=== PATIENT | female | born 1955 | race Caucasian/White ===

== ENCOUNTER → 2016-11-20 | Outpatient (CLI) | payer BC ==
[~2016-11-20] MED LIST: ASPEC81 PO; CLTP PO; HYDC25 PO; LISI10TA PO; MULT-506 PO; SIMV20TA2 PO; STLS
--- NOTE | 2016-11-20 15:36 | MAMMOGRAPHY REPORT ---
BILATERAL DIGITAL SCREENING MAMMOGRAM TOMOSYNTHESIS WITH CAD: 11/20/2016 TECHNIQUE: Breast tomosynthesis in addition to standard 2D mammography was performed. Current study was also evaluated with a Computer Aided Detection (CAD) system. COMPARISON: Comparison is made to exams dated: 11/18/2015 mammogram, 11/14/2013 mammogram, 11/08/2012 mammogram, 11/16/2014 mammogram, 11/06/2011 mammogram, and 11/05/2010 mammogram - [facility]. BREAST COMPOSITION: The tissue of both breasts is heterogeneously dense, which may obscure small ma sses. FINDINGS: No suspicious masses, calcifications, or areas of architectural distortion are noted in e ither breast. There has been no significant interval change compared to prior exams. Fluctuating sc attered round/oval circumscribed benign-appearing masses are again noted in the right breast, which likely represent cysts. Scattered bilateral benign-appearing calcifications are stable. IMPRESSION: ACR BI-RADS CATEGORY 2: BENIGN There is no mammographic evidence of malignancy. A 1 year screening mammogram is recommended. The p atient will receive written notification of the results. Approximately 10% of breast cancers are not detected with mammography. A negative mammographic repor t should not delay biopsy if a clinically suggestive mass is present. Marika Leyva M.D. /:11/20/2016 12:30:13 Collar Turner: Neetu CRENSHAW(R)(M), [facility] letter sent: Normal 1/2 BI-RADS Code: ACR BI-RADS Category 2: Benign
== END | disposition home or self-care (01) ==
LOC: C.MAMM 08:36
PROVIDERS: ATTEND Family Medicine
DX: Z12.31 Encounter for screening mammogram for malignant neoplasm of breast (principal)

== ENCOUNTER → 2017-11-22 | Outpatient (CLI) | payer BC ==
--- NOTE | 2017-11-22 15:52 | MAMMOGRAPHY REPORT ---
BILATERAL DIGITAL SCREENING MAMMOGRAM TOMOSYNTHESIS WITH CAD: 11/22/2017 CLINICAL HISTORY: Routine screening. Patient has no complaints. TECHNIQUE: Breast tomosynthesis in addition to standard 2D mammography was performed. Current study was also evaluated with a Computer Aided Detection (CAD) system. COMPARISON: Comparison is made to exams dated: 11/20/2016 mammogram, 11/18/2015 mammogram, 11/16/2014 m ammogram, 11/14/2013 mammogram, 11/08/2012 mammogram, and 11/06/2011 mammogram - [facility]. BREAST COMPOSITION: The tissue of both breasts is heterogeneously dense, which may obscure small mas ses. FINDINGS: No suspicious masses, calcifications, or areas of architectural distortion are noted in ei ther breast. There has been no significant interval change compared to prior exams. Fluctuating scat tered round/oval circumscribed benign-appearing masses are again noted in the right breast, which lik felecia represent cysts. Scattered bilateral benign-appearing calcifications are stable. A linear scar marker denotes a scar on the left breast. IMPRESSION: ACR BI-RADS CATEGORY 2: BENIGN There is no mammographic evidence of malignancy. A 1 year screening mammogram is recommended. The pa tient will receive written notification of the results. Approximately 10% of breast cancers are not detected with mammography. A negative mammographic report should not delay biopsy if a clinically suggestive mass is present. Marika Leyva M.D. /:11/22/2017 14:48:25 [facility] Teacher: Nina Ordaz, [facility] letter sent: Normal 1/2 BI-RADS Code: ACR BI-RADS Category 2: Benign
== END | disposition home or self-care (01) ==
LOC: C.MAMM 09:25
PROVIDERS: ATTEND Family Medicine
DX: Z12.31 Encounter for screening mammogram for malignant neoplasm of breast (principal)

== ENCOUNTER 2025-04-16 08:53 | Observation (INO) ==
--- NOTE | 2025-03-14 12:28 | PAT Medication Instructions ---
Medication Instructions Date of Service March 14, 2025 Home Medications atorvastatin 20 mg tablet (Lipitor) 20 mg PO QAM tamoxifen 20 mg tablet 20 mg PO QAM acetaminophen 500 mg capsule 500 mg PO QAM PRN Pain calcium 600 mg capsule 600 mg PO DAILY docusate sodium 100 mg capsule (Stool Softener) 100 mg PO DAILY hydrochlorothiazide 25 mg tablet 25 mg PO QAM ibuprofen 200 mg tablet 200 - 400 mg PO QAM PRN Pain lisinopril 10 mg tablet 10 mg PO QAM multivitamin 1 tab PO DAILY vitamin B complex 1 cap PO DAILY ASK your surgeon for instructions ibuprofen 200 mg tablet 200 - 400 mg PO QAM PRN Pain ASK your prescriber and surgeon tamoxifen 20 mg tablet 20 mg PO QAM DO NOT take the morning of surgery calcium 600 mg capsule 600 mg PO DAILY docusate sodium 100 mg capsule (Stool Softener) 100 mg PO DAILY hydrochlorothiazide 25 mg tablet 25 mg PO QAM lisinopril 10 mg tablet 10 mg PO QAM multivitamin 1 tab PO DAILY vitamin B complex 1 cap PO DAILY Take morning of surgery With a small sip of water, OTHERWISE NOTHING TO EAT OR DRINK AFTER MIDNIGHT: atorvastatin 20 mg tablet (Lipitor) 20 mg PO QAM acetaminophen 500 mg capsule 500 mg PO QAM PRN Pain (if needed) Other Notes If you have any questions please call us at [phone] or [phone] or [phone] or [phone]
--- NOTE | 2025-03-22 10:27 | Anesthesiology Consultation ---
Date of Service March 22, 2025 Assessment & Plan (1) Encounter for pre-operative examination: - left arm restriction. - Case discussed in detail with Dr. Berry including pre-op CXR and he advised patient is acceptable to proceed, nothing additional needed. Will fax GLEN chacon to [facility] PCP for continuity of care. - Outpatient joint assessment: Patient is currently scheduled for inpatient pathway. If re-evaluated and patient/surgeon requests outpatient pathway, patient is acceptable candidate for outpatient joint program from anesthesia standpoint pending surgeon's office assessment of pt motivation/support/completion of same day joint program preop requirements. Chart Review Chart Review: Acceptable Risk for Surgery and Patient seen in Pre Admission Testing Teaching & Discussion Pre-Anesthesia Teaching/Discussion Notes: Instructed NPO after midnight before surgery, except medications with 15 cc of water. Medication instructions provided according to the PAT guidelines. History Surgery Operation Date: 04/16/25 08:15 Proposed Procedures p Right Anterior Total Hip Arthroplasty - René Dickson, Height/Weight Height: 5 ft 6 in Weight: 93.4 kg Allergies Allergy/AdvReac Type Severity Reaction Status Date / Time No Known Allergies Allergy Verified 03/13/25 14:29 Medications Home Medications Medication Instructions Recorded Confirmed Last Taken atorvastatin 20 mg tablet (Lipitor) 20 mg PO QAM 02/18/22 03/13/25 Unknown tamoxifen 20 mg tablet 20 mg PO QAM 02/11/24 03/13/25 Unknown acetaminophen 500 mg capsule 500 mg PO QAM PRN Pain 03/13/25 03/13/25 Unknown calcium 600 mg capsule 600 mg PO DAILY 03/13/25 03/13/25 Unknown docusate sodium 100 mg capsule 100 mg PO DAILY 03/13/25 03/13/25 Unknown (Stool Softener) hydrochlorothiazide 25 mg tablet 25 mg PO QAM 03/13/25 03/13/25 Unknown ibuprofen 200 mg tablet 200 - 400 mg PO QAM PRN Pain 03/13/25 03/13/25 Unknown lisinopril 10 mg tablet 10 mg PO QAM 03/13/25 03/13/25 Unknown multivitamin 1 tab PO DAILY 03/13/25 03/13/25 Unknown vitamin B complex 1 cap PO DAILY 03/13/25 03/13/25 Unknown Past Medical History Medical History (Updated 03/22/25 @ 10:36 by Cathy Ball PA-C) CHEK2 positive Per patient Dyslipidemia History of left breast cancer (12/2021) s/p XRT, surgery Taking tamoxifen LUE limb restriction History of trigger finger Right Thumb Hypertension controlled, stable per pt Limb alert care status left arm Liver hemangioma MRI- "no concern" per patient Lymphedema of arm Per records Phlegm in throat Chronic nighttime issue Vertigo chronic, stable Patient denies h/o stroke, seizures, heart attack, heart failure, DM, blood clots/DVTs or blood transfusions. Exercise / Class Metabolic Activity II 4-5 Yardwork/Stairs/Walk up hill (denies chest discomfort or shortness of breath with one flight of stairs) Past Family History Family History Father Prostate cancer Mother Ovarian cancer, Onset Age: 60 Sister Breast cancer Sister Breast cancer Unknown Breast cancer Unknown Bladder cancer Unknown Prostate cancer Unknown Lymphoma Sister Skin cancer Sister No problems noted. Brother No problems noted. Daughter No problems noted. Son No problems noted. Unknown Brain cancer Unknown Breast cancer Unknown Breast cancer Past Surgical History Surgical History History of colonoscopy (06/23/22) History of hysterectomy with oophorectomy (2000) History of lumpectomy of left breast (01/21/22) + Bracketing of Tumors by Needle Localization x2 + Left Axillary SLN Resection History of tonsillectomy and adenoidectomy History of tubal ligation History of ultrasound guided needle biopsy (12/17/21) Left Breast + Clip Placement History of wisdom tooth extraction Hx laparoscopic cholecystectomy (1997) PONV (postoperative nausea and vomiting) Past Anesthesia History No Hx of Anesthesia Complications and No Family Hx of Anesthesia Complications History of PONV History of PONV (with hysterectomy) and Hx of Motion Sickness Social History Smoking Status: Never smoker Do You Dip or Chew Tobacco: No Hx Alcohol Use: No Hx Substance Use: No substance use type: does not use Review of Systems Patient denies chest pain, shortness of breath, dyspnea on exertion, snoring, witnessed apneas, reflux, fever, chills, cough, wheezing, or palpitations. Physical Exam Vital Signs Vitals BP right arm 122/73 P 67 TEMP 98.4 SP02 97% on RA RESP 18 Physical Patient resting comfortably in chair in no acute distress, alert and oriented, responding appropriately throughout visit Full cervical extension range of motion without pain TMD 3.5 finger breadths Mallampati Score 2 Dentition: implant, denies chipped or loose teeth, caps/crowns, or bridges Lungs: normal respiratory effort. Good air movement, clear throughout to auscultation, no adventitious breath sounds Cardiac: regular rate and rhythm, no murmurs noted Carotid arteries: negative bruit bilat Lab Results Anesthesia Preop Results Results Anesthesia Widget: WBC 5.24 K/ul (4.8-10.8) 03/22/25 Hgb 12.7 g/dl (12.0-16.0) 03/22/25 Hct 38.1 % (37.0-47.0) 03/22/25 Plt 229 K/uL (130-400) 03/22/25 Na 141 mmol/L (136-145) 03/22/25 K 3.6 mmol/L (3.5-5.1) 03/22/25 Cl 104 mmol/L (98-107) 03/22/25 CO2 30 mmol/L (21-32) 03/22/25 BUN 18 mg/dl (6-23) 03/22/25 Creat 0.80 mg/dl (0.6-1.2) 03/22/25 Glucose Level 96 mg/dl (70-99(Fasting)) 03/22/25 PT 10.6 Seconds (9.0-12.0) 03/22/25 PTT 24 Seconds (21-31) 03/22/25 INR 1.0 (0.9-1.1) 03/22/25 Blood Type O Positive 03/22/25 Antibody Screen NEGATIVE 03/22/25 Testing Electrocardiogram Date: 03/22/25 NSR, rate 69 bpm Chest X-Ray Date: 03/22/25 1.Prominent bronchovascular markings noted predominantly in both lower lung zones, can be non specific or due to patient's position. Needs clinical correlation. 2.Scoliosis deformity with thoracic spondylosis.
--- NOTE | 2025-04-11 13:02 | History & Physical Report ---
Date of Service April 11, 2025 Assessment & Plan (1) Osteoarthritis of right hip: We will proceed with a right anterior total of arthroplasty. Postoperatively, she will be started on aspirin for DVT prophylaxis and kept overnight in the hospital for postop medical management. She plans to use energy physical therapy at discharge. History of Present Illness Chief Complaint: Osteoarthritis of the right hip. Primary Care Provider: David Dolan MD Marley is a pleasant 69-year-old female who has been dealing with chronic increasing right hip pain. X-rays and a clinical exam have been diagnostic for advanced arthritis of the right hip. After failing extensive conservative treatment, she has elected to proceed with a right anterior total of arthroplasty. Allergies Allergy/AdvReac Type Severity Reaction Status Date / Time No Known Allergies Allergy Verified 03/13/25 14:29 Home Medications Medication Instructions Recorded Confirmed Type atorvastatin 20 mg tablet (Lipitor) 20 mg PO QAM 02/18/22 03/13/25 History tamoxifen 20 mg tablet 20 mg PO QAM 02/11/24 03/13/25 History acetaminophen 500 mg capsule 500 mg PO QAM PRN Pain 03/13/25 03/13/25 History calcium 600 mg capsule 600 mg PO DAILY 03/13/25 03/13/25 History docusate sodium 100 mg capsule 100 mg PO DAILY 03/13/25 03/13/25 History (Stool Softener) hydrochlorothiazide 25 mg tablet 25 mg PO QAM 03/13/25 03/13/25 History ibuprofen 200 mg tablet 200 - 400 mg PO QAM PRN Pain 03/13/25 03/13/25 History lisinopril 10 mg tablet 10 mg PO QAM 03/13/25 03/13/25 History multivitamin 1 tab PO DAILY 03/13/25 03/13/25 History vitamin B complex 1 cap PO DAILY 03/13/25 03/13/25 History Past Med/Surg History Problem List (Updated 04/11/25 @ 13:02 by René Dickson DO) Osteoarthritis of right hip Encounter for pre-operative examination Malignant neoplasm of central portion of left breast in female, estrogen receptor positive (Chronic 12/17/21) Dyslipidemia Hypertension Liver hemangioma Medical History Vertigo chronic, stable Limb alert care status left arm Lymphedema of arm Per records CHEK2 positive Per patient History of trigger finger Right Thumb Phlegm in throat Chronic nighttime issue Liver hemangioma MRI- "no concern" per patient Hypertension controlled, stable per pt Dyslipidemia History of left breast cancer (12/2021) s/p XRT, surgery Taking tamoxifen LUE limb restriction Surgical History PONV (postoperative nausea and vomiting) History of wisdom tooth extraction History of tonsillectomy and adenoidectomy History of tubal ligation Hx laparoscopic cholecystectomy (1997) History of hysterectomy with oophorectomy (2000) History of colonoscopy (06/23/22) History of lumpectomy of left breast (01/21/22) + Bracketing of Tumors by Needle Localization x2 + Left Axillary SLN Resection History of ultrasound guided needle biopsy (12/17/21) Left Breast + Clip Placement Family History Father Prostate cancer Mother Ovarian cancer, Onset Age: 60 Sister Breast cancer Sister Breast cancer Unknown Breast cancer Unknown Bladder cancer Unknown Prostate cancer Unknown Lymphoma Sister Skin cancer Sister No problems noted. Brother No problems noted. Daughter No problems noted. Son No problems noted. 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 Physical Exam On physical examination of the right hip, she has decreased range of motion. She has pain with internal/external rotation. All of her pains located in the groin.. Constitutional WD/WN, vitals as above Eyes PERRL, conjunctivae normal, anicteric sclerae ENMT external ear and nose normal, oropharynx normal Neck trachea midline, no thyromegaly Respiratory normal respiratory effort Cardiovascular RRR, no murmur, no edema Gastrointestinal (Abdomen) normal bowel sounds, soft, nontender, no hepatosplenomegaly Psychiatric A+Ox3, euthymic affect Results & Data Results & Data Laboratory Results . Diagnostic Findings X-rays of the right hip show advanced osteoarthritis with joint space narrowing, osteophyte formation, and [id number] articulation. PG Care Time/CCT Total # of Minutes Spent Total Time Spent with Patient: Total time spent is greater than 50% in coordination of care (as documented) at patient's floor/unit and/or counseling patient: Coding Level of Care Code None Diagnoses Osteoarthritis of right hip M16.11
[~2025-04-16 08:53] MED LIST changes: -ASPEC81 PO; +BUPIVACAINE 0.5 % 5 MG/1 ML PF 10ML VIAL ONE; -CLTP PO; -HYDC25 PO; -LISI10TA PO; -MULT-506 PO; -SIMV20TA2 PO; -STLS
[2025-04-16] MEDS ORDERED: ONDANSETRON INJ 2 MG/ML 2 ML VIAL ONE (09:21)
[2025-04-16] MEDS ORDERED: PROPOFOL IV EMULSION 10 MG/ML 20 ML VIAL IV ONE ×2 (09:21→11:58)
[2025-04-16] MEDS ORDERED: MIDAZOLAM HCL 1 MG/ML 2ML VIAL ONE (09:21)
[2025-04-16] MEDS ORDERED: fentaNYL citrate PF 100 MCG/2 ML VIAL ONE (09:21)
[2025-04-16] MEDS: LR 500ML BOLUS, THEN 15ML/HR IV SCH (09:35)
[2025-04-16] MEDS: LR 60ML/HR IV SCH (09:37)
[2025-04-16] MEDS: FAMOTIDINE 20 MG TAB PO SCH (09:38)
[2025-04-16] MEDS: dexAMETHasone**PF** 10 MG/ML VIAL IV SCH (09:38)
[2025-04-16] MEDS: GABAPENTIN 300 MG CAP PO SCH (09:38)
[2025-04-16] MEDS: ACETAMINOPHEN 500 MG TAB PO SCH ×2 (09:38→15:02)
[2025-04-16] MEDS ORDERED: ATROPINE SULFATE 0.1 MG/ML 10ML SYR IV PRN (10:02)
[2025-04-16] MEDS ORDERED: ONDANSETRON INJ 2 MG/ML 2 ML VIAL IV PRN ×2 (10:02→12:38)
[2025-04-16] MEDS ORDERED: fentaNYL citrate PF 100 MCG/2 ML VIAL IV PRN (10:02)
[2025-04-16] MEDS ORDERED: ePHEDrine sulfate 50 MG/ML AMP IV PRN (10:02)
--- NOTE | 2025-04-16 10:07 | History & Physical Bridge Note ---
Date of Service April 16, 2025 History & Physical Bridge Note I have examined the patient, reviewed the History & Physical and in the interval since the performance of the History & Physical I have noted the following changes of clinical significance: no changes noted
[2025-04-16] MEDS: TRANEXAMIC ACID 1,000 MG **IV Pre-op IV SCH (10:48)
[2025-04-16] MEDS: ceFAZolin 2000MG 2,000 MG/15 ML SYR IV SCH ×2 (11:05→18:27)
[2025-04-16] MEDS: ORTHO JOINT ANESTHETIC ONE (11:41)
[2025-04-16] MEDS: ROPIV 0.5% 246mg, Ketorolac 30mg, EPINEPHrine 0.5mg in NSS INFIL SCH (11:41)
[2025-04-16] MEDS: TRANEXAMIC ACID 1,000 MG **IV Intra-op IV SCH (12:04)
--- NOTE | 2025-04-16 12:07 | Operative Report ---
PG Post Operative Report Pre & Post Diagnosis Operation Date: 04/16/25 11:00 Pre-Op Diagnosis: Right Hip Degenerative Joint Disease Post-Op Diagnosis: Right Hip Degenerative Joint Disease I identified the patient and participated in the time-out.: Yes Procedure Operation Date: 04/16/25 11:00 Actual Procedures p Right Anterior Total Hip Arthroplasty(Right) - René Dickson DO Surgeon René Dickson DO Coil Cleaner Ginny Sanabria PA-C Estimated Blood Loss 200 Findings Consistent with Post-Op Diagnosis Specimens Right femoral head Description of Procedure Implants used I used a [employer]immer[employer]omet total hip arthroplasty system with a size 5 standard offset Z1 stem, a 52 mm G7 cup with a 25mm screw, an E1 polyethylene liner, a 36 mm ceramic head with a -3.5 neck. Marley arrived at the hospital for the above procedure. She was seen in the preoperative holding area and the operative extremity was identified and signed. She was given a spinal anesthetic, a preoperative antibiotic, and TXA. She was then taken back to the operating room and laid on the table in the supine position. She was given basic sedation. The operative leg was secured to a Puristst leg positioner. The hip was then prepped and draped in sterile fashion. A timeout was done and the patient and the operative extremity was properly identified. An anterior approach was used. Dissection was taken down through the fascia and the tensor muscle belly was retracted laterally and the rectus was retracted medially. The circumflex vessels were identified and ligated. The capsule was then incised and tagged for later repair. The femoral neck was then cut and the femoral head was removed. The acetabulum was exposed. Time was spent doing a complete circumferential labral release. Sequential reaming of the acetabulum up to a size 51 reamer was done. Final reamings were done under fluoroscopy to ensure appropriate version. A Biomet 52 mm G7 cup was then impacted into place. A single 25 mm screw was placed. The E1 polyethylene liner was then snapped into place. Surrounding soft tissues were then injected with 100 cc of an orthopedic pain control cocktail. The proximal femur was then exposed. Sequential broaching up to a size 5 broach was done. Off that broach a size 36 head with a -3.5 neck was trialed. The hip was reduced and fluoroscopic images showed anatomic alignment of the implants in acceptable length. The broach was removed. The final size 5 standard offset Z1 stem was then impacted into place. A ceramic 36 mm head with a -3.5 neck was then impacted onto the stem and the hip was reduced. Final fluoroscopic images showed anatomic alignment of the hip. The capsule was then closed with #1 Vicryl suture. A dilute betadyne lavage was then done for 3 minutes. The joint was then irrigated with normal saline solution. The fascia was closed with #1 PDS suture. Skin was closed with 2-0 Vicryl, gurjit, and a Silverlon dressing. She was then transferred to a hospital bed and taken to the post anesthesia care unit in stable condition. She tolerated the procedure well. Ginny Sanabria PA-C, was present for the entire procedure. He was critical for patient positioning, prepping, draping, retraction exposure, wound closure and application of sterile dressing. I attest to the content of the Intraoperative Record and any orders documented therein. Any exceptions are noted below.
--- NOTE | 2025-04-16 12:32 | Fluoroscopy Report ---
FL hip RT 1V CLINICAL HISTORY: RT ANT HIP COMPARISON STUDY: None FLUOROSCOPY TIME: 14 seconds FLUOROSCOPY IMAGES: 1 EXPOSURE DOSE: 2 mGy FINDINGS: Fluoroscopy was provided for right hip prosthesis. IMPRESSION: Intraoperative fluoroscopy. ACT 112: Negative or not required by law. Electronically signed by: Blas Diallo M.D. 04/16/2025 12:31 PM
[2025-04-16] MEDS ORDERED: HYDROmorphone INJ 0.5 MG/0.5 ML SYR IV PRN (12:38)
[2025-04-16] MEDS ORDERED: bisacodyL 10 MG SUPP PR PRN (12:38)
[2025-04-16] MEDS ORDERED: diphenhydrAMINE Capsule 25 MG CAP PO PRN (12:38)
[2025-04-16] MEDS ORDERED: MAGNESIUM HYDROXIDE SUSP 30 ML UDC PO PRN (12:38)
[2025-04-16] MEDS ORDERED: oxyCODONE HCL IR 5 MG TAB (IMMEDIATE RELEASE) PO PRN (12:38)
[2025-04-16] MEDS ORDERED: NALOXONE HCL 0.4 MG/1 ML VIAL/CARP IV PRN (12:38)
[2025-04-16] MEDS ORDERED: HYDROmorphone INJ 1 MG/ML SYRINGE IV PRN (12:38)
[2025-04-16] MEDS ORDERED: METOCLOPRAMIDE HCL INJ 5 MG/ML 2 ML VIAL IV PRN (12:38)
[2025-04-16] MEDS ORDERED: NON-FORMULARY MEDICATION (Acetaminophen 500 mg Capsule) PO PRN (12:40)
--- NOTE | 2025-04-16 13:12 | XRay Report ---
XR hip 1V RT w pelvis CLINICAL HISTORY: IN PACU - Post Surgical COMPARISON: None FINDINGS: Right hip prosthesis shows no hardware complication. There is expected soft tissue gas. IMPRESSION: Unremarkable postoperative exam. ACT 112: Negative or not required by law. Electronically signed by: Blas Diallo M.D. 04/16/2025 1:11 PM
--- NOTE | 2025-04-16 13:34 | Anesthesiology Progress Note ---
Date of Service April 16, 2025 Anesthesia Post Procedure Vital Signs Vital Signs: Temp Pulse Resp BP Pulse Ox O2 Del Method O2 Flow Rate 04/16/25 13:30 36.3 C L 82 13 140/66 98 Room Air 04/16/25 13:20 77 17 126/79 98 Room Air 04/16/25 13:10 78 13 155/77 H 99 Room Air 04/16/25 13:00 76 18 130/93 97 Oxymask 4 04/16/25 12:50 77 17 125/59 L 97 Oxymask 04/16/25 12:41 36.0 C L 76 20 113/74 97 Oxymask 04/16/25 09:17 36.8 C 79 20 170/95 H 96 Room Air Pain Intensity Right Hip: Pain Intensity: 1 Transfer of Care Handoff Completed per policy Notes Mental Status: alert / awake / arousable Patient Amnestic to Procedure: Yes Nausea / Vomiting: adequately controlled Pain: adequately controlled Airway Patency, RR, SpO2: stable & adequate BP & HR: stable & adequate Hydration State: stable & adequate Anesthetic Complications: no major complications apparent
[2025-04-16] MEDS: SODIUM CHLORIDE 0.9% 1,000 ML IV SCH (14:41)
[2025-04-16] MEDS: KETOROLAC TROMETHAMINE 15 MG/ML VIAL IV SCH (15:02)
[2025-04-16 16:06] VITALS: RESP 16
[2025-04-16] MEDS: DOCUSATE SODIUM 100 MG CAP PO SCH (21:07)
[2025-04-16] MEDS: SENNA 8.6 MG TAB PO SCH (21:08)
[2025-04-17 03:41] VITALS: TEMP 98.1
[2025-04-17 07:01] VITALS: BP 123/75; PULSE 65; O2SAT 96
[2025-04-17] MEDS ORDERED: DOCUSATE SODIUM 100 MG CAP PO SCH (09:00)
[2025-04-17] MEDS ORDERED: NON-FORMULARY MEDICATION (Multivitamin Tablet) PO SCH (09:00)
[2025-04-17] MEDS: ATORVASTATIN 20 MG TAB PO SCH (09:14)
[2025-04-17] MEDS: ASPIRIN 81 MG ECTAB PO SCH (09:14)
[2025-04-17] MEDS: dexAMETHasone 4 MG TAB PO SCH (09:14)
[2025-04-17] MEDS: hydroCHLOROthiazide 25 MG TAB PO SCH (09:15)
[2025-04-17] MEDS: lisinopril 10 MG TAB PO SCH (09:15)
[2025-04-17] MEDS: CALCIUM CARBONATE 1250MG TAB PO SCH (09:15)
[2025-04-17] MEDS: MULTIVITAMIN TAB PO SCH (09:15)
[2025-04-17] MEDS: TAMOXIFEN CITRATE 10 MG TABLET PO SCH (09:15)
[2025-04-17] MEDS: VITAMIN B COMPLEX TAB PO SCH (09:16)
--- NOTE | 2025-04-17 09:49 | Orthopedic Progress Note ---
Date of Service April 17, 2025 Assessment & Plan (1) S/P total right hip arthroplasty: * Continue Current Treatment * Disposition: home * Daily treatment: Physical Therapy/ Occupational Therapy per protocol * Weight bearing status: WBAT * Continue to monitor for ABLA * Pain control * DVT prophylaxis, ASA/Eliquis * Office/hospital f/u 2 weeks for progress check and staple/suture removal * Plan for discharge today pending PT/OT clearance Subjective . Active Problems: S/p right SHAZIA 70 y/o female s/p right SHAZIA. Doing well overall, pain managed and improved function. Denies fever/chills, chest pain/SOB, nausea/vomiting. Otherwise no complaints. Review of Systems All systems reviewed & are unremarkable except as noted in HPI & below. Physical Exam .right hip surgical dressing CDI, not removed for exam. Otherwise no obvious deformity or overlying skin changes. Diffuse TTP proximal thigh and hip region. Otherwise no specific tenderness of distal thigh, lower leg, foot/ankle. AROM hip flexion intact. AROM foot/ankle intact. Sensation intact plantar/dorsal foot. Brisk capillary refill. Results & Data Results & Data Laboratory Results . Diagnostic Findings . PG Care Time/CCT Total # of Minutes Spent Total Time Spent with Patient: Total time spent is greater than 50% in coordination of care (as documented) at patient's floor/unit and/or counseling patient: Coding Level of Care Code 25593 Post Operative Follow-Up Diagnoses S/P total right hip arthroplasty Z96.641
== END 2025-04-17 11:00 | disposition home or self-care (01) ==
LOC: ASU 08:53 → 3W 08:53